=== PATIENT | female | born 2000 | race Caucasian/White ===

== ENCOUNTER 2018-03-14 11:05 | Outpatient (CLI) | payer BC, OTHER ==
--- NOTE | 2018-03-14 15:52 | MRI ---
MRI OF RIGHT KNEE PERFORMED WITHOUT CONTRAST ENHANCEMENT: Date: 03/14/18 HISTORY: Right knee pain after fall. FINDINGS: The anterior, as well as posterior cruciate ligaments, appear intact. The lateral meniscus has a normal shape and appearance. The medial meniscus is also normal in appeara nce. The medial and lateral collateral ligaments and iliotibial band regions appear unremarkable. There is a moderate joint effusion noted. The patella is laterally subluxed, probably related to the presence of the joint effusion. There is evidence of some capsular rupture with some fluid seen in th e soft tissues. The medial and lateral patellar retinaculum are felt to be normal in appearance. Ther e is a small amount of fluid seen near the MPFL and distal end of the vastus medialis, but this proba agnes just represents joint capsule fluid that is ruptured rather than any true injury to the MPFL. It could indicate some strain at the myotendinous junction of the distal vastus medialis. The quadriceps and patellar tendons appear intact. Minimal edema change is seen along the medial size of the link ceps tendon which could indicate injury. IMPRESSION: 1. No evidence of cruciate ligament or meniscal injury. 2. Moderate joint effusion. The patella is laterally subluxed associated with this. There are some e vineet changes near the medial side of the quadriceps tendon and distal portion of the vastus medialis muscle. Some of this, I think, is just related to some joint capsule fluid that has ruptured, but cou ld indicate a mild strain at this level. There does appear to be some edema change associated with th e medial insertion of the quadriceps tendon. Clinical correlation as to any pain specifically related to this region. Findings somewhat equivocal as it is less impressive on the sagittal or coronal sequ ences. POS: [facility]
== END 2018-03-14 11:06 | disposition home or self-care (01) ==
LOC: MRI 11:05
PROVIDERS: ATTEND Orthopaedic Surgery
DX: M23.91 Unspecified internal derangement of right knee (principal); M25.461 Effusion, right knee; S83.011A Lateral subluxation of right patella, initial encounter

== ENCOUNTER 2018-09-20 15:05 | Outpatient (CLI) | payer BC, OTHER ==
--- NOTE | 2018-09-20 16:33 | MRI ---
MR OF THE LEFT KNEE WITHOUT CONTRAST 09/20/18 INDICATION: History of left knee injury while playing basketball. COMPARISON: None. FINDINGS: There is a partial thickness region of delamination involving the lateral patellar facet measuring 1. 3 cm greatest axial dimension. This involves 50% of the articular cartilage thickness of the lateral patellar facet. There is also mild to moderate chondrosis involving the lateral femoral trochlea with a 3 mm focus of articular cartilage delamination involving the lateral femoral trochlea on image 10 of series 3. There is increased T2 signal involving the lateral patellar tendon as well as portions of the lateral superior aspect of Hoffa's fat pad. There is some mild reactive marrow edema involving the patella a nd lateral femoral condyle. There is a moderate sized joint effusion. There is a small popliteal cyst. The medial patellofemoral ligament appears intact. The patella and quadriceps mechanism is intact. The MCL, ACL, PCL, and LCLC are intact. The lateral and medial menisci are intact. The articular cartilage of the femorotibial compartments are intact. IMPRESSION: Prominent chondrosis involving the lateral patellofemoral compartment with a partial thickness region of delamination involving the lateral patellar facet. There is also edema involving the lateral asp ect of the patellar tendon and superior and lateral aspect of Hoffa's fat pad which can be seen with lateral patellar tendon/lateral femoral condyle friction syndrome. There is mild reactive bone marrow edema involving the lateral femoral condyle as well as the lateral patellar facet. POS: [facility]
== END 2018-09-20 15:06 | disposition home or self-care (01) ==
LOC: TBSIIMAG 15:05
PROVIDERS: ATTEND Orthopaedic Surgery
DX: M23.92 Unspecified internal derangement of left knee (principal)

== ENCOUNTER 2018-10-04 06:46 | Day surgery (SDC) | payer BC, OTHER ==
[2018-10-03 13:23] VITALS: BMI 25.7
[2018-10-04] MEDS ORDERED: PROPOFOL 20 ML ONE (07:00)
[2018-10-04] MEDS ORDERED: Fentanyl 100 MCG/2 ML VIAL ONE (07:50)
--- NOTE | 2018-10-04 08:52 | OP ---
DATE OF PROCEDURE: 10/04/2018 PREOPERATIVE DIAGNOSES: 1. 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 2. Small impinging osteophyte of the tibia. 3. A small grade 2 lesion on the lateral aspect of the trochlea. POSTOPERATIVE DIAGNOSES: 1. 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 2. Small impinging osteophyte of the tibia. 3. A small grade 2 lesion on the lateral aspect of the trochlea. PROCEDURE: 1. Left knee debridement and shaving of all aforementioned structures SURGEON: Jacob Patton MD WRIST CLOSER: None. ESTIMATED BLOOD LOSS: Minimal. COMPLICATIONS: None. ANESTHESIA: She did have general anesthetic. She had a preoperative local knee block. DISPOSITION: She went to recovery room in stable condition. 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 MRI scan showed that she had some large unstable chondral flaps. At this time, she opted to have surgery. DESCRIPTION OF PROCEDURE: After all appropriate consent forms were explained and signed, she was taken back to the operating room and at this time was given general anesthetic. Once the level of anesthesia was appropriate, tourniquet was placed on the left thigh and the leg was placed in arthroscopic leg cooper. The limb was then prepped and draped in standard surgical fashion. The limb was exsanguinated and the tourniquet was taken up to 300 mmHg. Inferolateral portal was established. Scope was placed into the knee joint. A needle localization technique was then used to make a medial working portal. Diagnostic arthroscopy commenced in the notch. The ACL and PCL were probed, found to be intact. There was a small impinging osteophyte of the tibia around the medial plateau. This was taken down with a shaver. Medial compartment was entered, was probed, found to be intact. Same for the lateral compartment. Gutters were swept through. No loose bodies were noted. Patellofemoral joint did show some small cartilage pieces floating around, which were removed with a shaver and then there was a large area on the lateral and inferolateral facet of the patella with some large unstable chondral flaps. There was no exposed bone. These were taken down at a stable base with the shaver. Again, there was still remaining cartilage left on the patella. There was a small area on the lateral aspect of the trochlea, which was about 6 mm in diameter, which had a small area of unstable chondral flap and this was gently debrided. Again, this appeared to be a grade 2 lesion. The patella was seen to be tracking laterally. However, the patient has no known history of subluxation or dislocation and this was left alone. At this time, the scope was removed. Knee was drained and portals were closed with simple nylon stitch. Bulky sterile dressing was applied and the tourniquet was let down. Toes pinked up nicely. The patient was then awakened and taken to the recovery room in stable condition. All counts were correct at the end of the case and she did receive preoperative IV antibiotics. Job ID: [id number] [id number]
[2018-10-04] MEDS ORDERED: Bupivacaine HCl 0.5%/Epinephrine 1:200,000/PF 30 ml Vial ONE (10:11)
[2018-10-04] MEDS ORDERED: Lidocaine 2% w/Epinephrine 1:200K 20 ML VIAL ONE (10:11)
[2018-10-04] MEDS ORDERED: Ondansetron PF 4 MG/2 ML Vial ONE (10:50)
[2018-10-04] MEDS ORDERED: Ketorolac Tromethamine 30 MG/ML VIAL ONE (10:50)
[2018-10-04] MEDS ORDERED: PROPOFOL 200 MG/20 ML VIAL ONE (10:50)
[2018-10-04] MEDS ORDERED: Lidocaine 1% PF 5 ML VIAL ONE (10:50)
== END 2018-10-04 08:55 | disposition home or self-care (01) ==
LOC: SDC 06:46
PROVIDERS: ATTEND Orthopaedic Surgery
PROC: 0SBD4ZZ Excision of Left Knee Joint, Percutaneous Endoscopic Approach (ICD-10-PCS; principal; 2018-10-04)
PROC: 3E0T3BZ Introduction of Anesthetic Agent into Peripheral Nerves and Plexi, Percutaneous Approach (ICD-10-PCS; principal; 2018-10-04)
DX: M22.42 Chondromalacia patellae, left knee (principal); M23.92 Unspecified internal derangement of left knee; M25.70 Osteophyte, unspecified joint; J45.909 Unspecified asthma, uncomplicated
CPT/HCPCS: J0670; J0690; J1885; J2001; J2405; J2704; J3010